=== PATIENT | female | born 1985 | race Caucasian/White ===

== ENCOUNTER 2022-07-22 13:12 | Emergency (ER) | payer OTHER ==
[~2022-07-22] VITALS: Ht 160 cm; Wt 65.9 kg
[2022-07-22 13:16] VITALS: BP 125/81
[2022-07-22] MEDS ORDERED: TAMS-13 PO (13:26)
[2022-07-22] MEDS ORDERED: ALBU8HFA IH (13:26)
[2022-07-22] MEDS ORDERED: FEXO-353 PO (13:26)
[2022-07-22] MEDS ORDERED: NAPH15DR75 OU (14:10)
== END 2022-07-22 14:20 | disposition home or self-care (01) ==
LOC: EMS 13:18
DX: H10.13 Acute atopic conjunctivitis, bilateral (principal); J45.909 Unspecified asthma, uncomplicated
CPT/HCPCS: 99282; Z7502